=== PATIENT | female | born 1985 | race Caucasian/White ===

== ENCOUNTER 2025-01-07 03:11 | Emergency (ER) | payer BC ==
[~2025-01-07] VITALS: Ht 167.6 cm; Wt 63.5 kg
[2025-01-07 04:13] LABS: CALCIUM, SERUM 8.6 mg/dL (8.5-10.1); CREATININE 0.9 mg/dL (0.6-1.3); SODIUM SERUM 141 mmol/L (136-145); UREA NITROGEN, BLOOD 17 mg/dL (7-18)
[2025-01-07 04:18] LABS: INR 1.01 (0.91-1.10)
[2025-01-07 04:22] LABS: PLATELET COUNT (AUTO) 330 K/uL (150-450); RED BLOOD CELL COUNT(AUTO) 4.08 MIL/uL (4.0-5.2); RED CELL DISTRIBUTION WIDTH 12.2 % (11.5-15.0); WHITE BLOOD COUNT (AUTO) 7.0 K/uL (4.3-11.0)
[2025-01-07 04:25] LABS: ASPARTATE AMINOTRANSFERASE 21 U/L (15-37); NT-PRO BNP 19 pg/mL (0-125); TOTAL PROTEIN, SERUM 6.7 g/dL (6.4-8.2)
[2025-01-07 05:20] VITALS: BP 101/68; TEMP 98; O2SAT 99
== END 2025-01-07 05:21 | disposition home or self-care (01) ==
LOC: ER 03:16
DX: R00.2 Palpitations (principal); R55 Syncope and collapse; Z86.79 Personal history of other diseases of the circulatory system
CPT/HCPCS: 36415; 71045-TC; 80048-TC; 80076-TC; 82962-TC; 83880; 84484-TC; 85025-TC; 85378-TC; 85730-TC